=== PATIENT | male | born 1970 | race Two or more races ===

== ENCOUNTER 2023-02-27 06:02 | Day surgery (SDC) | payer OTHER ==
[~2023-02-27] VITALS: Ht 175.3 cm; Wt 95.3 kg
[2023-02-27] MEDS ORDERED: EPINEPHrine HCL 1 MG/1 ML AMP ONE (06:42)
[2023-02-27] MEDS ORDERED: ceFAZolin 1GM/50ML 100 ML IV ONE (06:51)
[2023-02-27] MEDS ORDERED: BUPIVACAINE HCL 50 ML ONE ×2 (06:57→07:13)
[2023-02-27] MEDS ORDERED: LIDOCAINE HCL 2 %PF INJ 10ML AMP IJ ONE (06:57)
[2023-02-27] MEDS ORDERED: MIDAZOLAM HCL 2MG/2ML 2ml VIAL (1mg/ml) ONE (06:57)
[2023-02-27] MEDS ORDERED: methylPREDNISolone ACETATE 80 MG/ML VL ONE (07:00)
[2023-02-27] MEDS ORDERED: LIDOCAINE HCL (LOCAL ANESTH.) 0.5 % 50ML MDV IJ ONE (07:00)
[2023-02-27] MEDS ORDERED: BUPIVACAINE 0.25% INJ 50ML VIAL ONE (07:00)
[2023-02-27] MEDS ORDERED: KETAMINE HCL 10 ML ONE (07:14)
[2023-02-27] MEDS ORDERED: LIDOCAINE 2% (LOCAL ANESTH.) PF 5ml SDV ONE (07:15)
[2023-02-27] MEDS ORDERED: KETOROLAC TROMETH 30 MG/ML 1ML VIAL ONE (07:15)
[2023-02-27] MEDS ORDERED: PROPOFOL 10 MG/ML 20 ML IV ONE (07:15)
[2023-02-27] MEDS ORDERED: DexAMETHasone SOD PHOS 10MG/1ML VIAL INJ ONE (07:15)
[2023-02-27] MEDS ORDERED: ONDANSETRON HCL 4 MG/2 ML VIAL ONE (07:15)
[2023-02-27] MEDS ORDERED: GLYCOPYRROLATE 0.2 MG/ML 1ML VIAL ONE (07:15)
[2023-02-27] MEDS ORDERED: FLUMAZENIL 0.1 MG/ML INJ 10ML MDV IV PRN (08:15)
[2023-02-27] MEDS ORDERED: ONDANSETRON HCL 4 MG/2 ML VIAL IV PRN (08:15)
[2023-02-27] MEDS ORDERED: HYDROmorphone HCL 2 MG/ML VL/or syr IV PRN (08:15)
[2023-02-27] MEDS ORDERED: hydrALAZINE HCL 20 MG/ML VL IV PRN (08:15)
[2023-02-27] MEDS ORDERED: LABETALOL HCL 5 MG/ML 4ML SYRINGE IV PRN (08:15)
[2023-02-27] MEDS ORDERED: NALOXONE HCL 0.4 MG/ML VIAL IV PRN (08:15)
[2023-02-27] MEDS ORDERED: fentaNYL CITRATE 100 MCG/2 ML VL IV PRN (08:15)
[2023-02-27] MEDS ORDERED: ePHEDrine SULFATE 50 MG/ML AMP IV PRN (08:15)
[2023-02-27 10:00] VITALS: BP 122/56
== END 2023-02-27 10:20 | disposition home or self-care (01) ==
LOC: SUR 06:02
PROVIDERS: ATTEND Orthopaedic Surgery Adult Reconstructive Orthopaedic Surgery
DX: M17.11 Unilateral primary osteoarthritis, right knee (principal); M65.861 Other synovitis and tenosynovitis, right lower leg; Z98.890 Other specified postprocedural states
CPT/HCPCS: 29881; J0171; J0690; J1040; J1100; J1885; J2001; J2250; J2405; J2704; J3490